=== PATIENT | male | born 1975 | race Caucasian/White ===

== ENCOUNTER 2017-09-03 09:33 | Emergency (ER) | payer OTHER ==
[2017-09-03 09:56] LABS: ADD MAN DIFF? NO
[2017-09-03] MEDS: IV NORMAL SALINE 1000ML BAG 1,000 ML IV (10:06)
[2017-09-03 10:11] LABS: BASO # 0.1 x10^3/uL (0.0-0.2); BASO % 1 % (0-3); EOS # 0.2 x10^3/uL (0.0-0.7); EOS % 2 % (0-3); HEMATOCRIT 51.4 % (39.0-53.0); HEMOGLOBIN 17.7 g/dL (13.0-17.5); LYMPH # 2.3 x10^3/uL (1.0-4.8); LYMPH % 26 % (24-48); MEAN CORPUSCULAR HEMOGLOBIN 30 pg (25-35); MEAN CORPUSCULAR HGB CONC 34 g/dL (31-37); MEAN CORPUSCULAR VOLUME 87 fL (79-100); MONO # 0.7 x10^3/uL (0.0-1.1); MONO % 7 % (0-9); NEUT # 5.6 x10^3uL (1.8-7.7); NEUT % 63 % (31-73); PLATELET COUNT 306 x10^3/uL (140-400); RED CELL DISTRIBUTION WIDTH 15.1 % (11.5-14.5); WHITE BLOOD COUNT 8.9 x10^3/uL (4.0-11.0)
[2017-09-03 10:22] LABS: ANION GAP 15 (6-14); BLOOD UREA NITROGEN 11 mg/dL (8-26); BUN/CREATININE RATIO 7 (6-20); CALCIUM 9.5 mg/dL (8.5-10.1); CARBON DIOXIDE 22 mmol/L (21-32); CHLORIDE 104 mmol/L (98-107); CREATININE 1.5 mg/dL (0.7-1.3); GFR 52.1; GLUCOSE 167 mg/dL (70-99); POTASSIUM 3.8 mmol/L (3.5-5.1); SODIUM 141 mmol/L (136-145)
[2017-09-03 10:25] LABS: TROPONINI < 0.017 ng/mL (0.000-0.055)
[2017-09-03 10:28] LABS: ALBUMIN 3.9 g/dL (3.4-5.0); ALK PHOS 94 U/L (46-116); ALT (SGPT) 29 U/L (16-63); AST (SGOT) 22 U/L (15-37); TOTAL BILIRUBIN 0.6 mg/dL (0.2-1.0)
[2017-09-03 11:18] LABS: POC GLUCOSE 163 mg/dL (70-99)
== END 2017-09-03 11:22 | disposition home or self-care (01) ==
LOC: ER 09:33
DX: R55 Syncope and collapse (principal); E86.0 Dehydration; Z86.718 Personal history of other venous thrombosis and embolism
CPT/HCPCS: 36415; 80053; 82962; 84484; 85025; 85379; 93005; 96360; 99285-25; J7030